=== PATIENT | male | born 1980 | race Caucasian/White ===

== ENCOUNTER 2017-02-05 09:09 | Emergency (ER) | payer BC ==
[2017-02-05] MEDS ORDERED: MORPHINE SULFATE 10 MG/ML INJ IV ONE ×4 (09:20→13:07)
--- NOTE | 2017-02-05 09:22 | ER Document Report ---
ED Medical Screen (RME) - General Chief Complaint: Flank Pain Stated Complaint: FEVER/FLANK PAIN Time Seen by Provider: 02/05/17 09:19 Mode of Arrival: Ambulatory Information source: Patient Notes: This is a 36-year-old man presenting to the emergency room with 3 days of fever , chills and right flank pain. Patient has noted dark urine. Patient states his temperatures been between 102 and 103. He has been taking Tylenol and Motrin [id number]. Denies any history of kidney stones. Allergies: Tramadol (palpitations) Past medical history: Hypertension, asthma chronic knee pain Dictation on this chart was performed using voice recognition software and may result in unintended grammatical errors. TRAVEL OUTSIDE OF THE [place] IN LAST 30 DAYS: No - Related Data Allergies/Adverse Reactions: egg Allergy (Verified 02/05/17 09:11) tramadol Allergy (Verified 02/05/17 09:11) Past Medical History Pulmonary Medical History: Reports: Hx Asthma, Hx COPD Renal/ Medical History: Denies: Hx Peritoneal Dialysis Skin Medical History: Denies Hx MRSA Psychiatric Medical History: Reports: Hx Attention Deficit Hyperactivity Disorder, Hx Depression, Hx Schizophrenia Past Surgical History: Reports: Hx Genitourinary Surgery - circumscised - Immunizations Immunizations up to date: Yes Hx Diphtheria, Pertussis, Tetanus Vaccination: Yes Physical Exam - Vital signs Vitals: Temp Pulse Resp BP Pulse Ox 98.6 F 117 H 20 149/88 H 100 02/05/17 09:11 02/05/17 09:11 02/05/17 09:11 02/05/17 09:11 02/05/17 09:11 Course - Vital Signs Vital signs: Temp Pulse Resp BP Pulse Ox 98.6 F 117 H 20 149/88 H 100 02/05/17 09:11 02/05/17 09:11 02/05/17 09:11 02/05/17 09:11 02/05/17 09:11
--- NOTE | 2017-02-05 09:44 | ER Document Report ---
ED GI/ - General Chief Complaint: Flank Pain Stated Complaint: FEVER/FLANK PAIN Time Seen by Provider: 02/05/17 09:19 Mode of Arrival: Ambulatory Information source: Patient Notes: Is a 36-year-old male who presents to the ER today for 3 days of right flank pain with fevers chills, some mild dysuria. He denies any hematuria. His fever has gotten as high as 103F at home. He has been taking Tylenol and Motrin [id number] as well as Percocet that he takes with pain management. He states that the pain is not controlled well with these medications. He denies any nausea or vomiting, history of kidney stones. TRAVEL OUTSIDE OF THE [place] IN LAST 30 DAYS: No - Related Data Allergies/Adverse Reactions: egg Allergy (Verified 02/05/17 09:11) tramadol Allergy (Verified 02/05/17 09:11) Past Medical History - General Information source: Patient - Social History Smoking Status: Unknown if Ever Smoked Family History: None, DM, Other - MS Patient has suicidal ideation: No Patient has homicidal ideation: No Pulmonary Medical History: Reports: Hx Asthma, Hx COPD Renal/ Medical History: Denies: Hx Peritoneal Dialysis Skin Medical History: Denies Hx MRSA Psychiatric Medical History: Reports: Hx Attention Deficit Hyperactivity Disorder, Hx Depression, Hx Schizophrenia Past Surgical History: Reports: Hx Genitourinary Surgery - circumscised - Immunizations Immunizations up to date: Yes Hx Diphtheria, Pertussis, Tetanus Vaccination: Yes Review of Systems - Review of Systems Constitutional: See HPI EENT: No symptoms reported Cardiovascular: No symptoms reported Respiratory: No symptoms reported Gastrointestinal: No symptoms reported Genitourinary: See HPI Male Genitourinary: No symptoms reported Musculoskeletal: No symptoms reported Skin: No symptoms reported Hematologic/Lymphatic: No symptoms reported Neurological/Psychological: No symptoms reported Physical Exam - Vital signs Vitals: Temp Pulse Resp BP Pulse Ox 98.6 F 117 H 20 149/88 H 100 02/05/17 09:11 02/05/17 09:11 02/05/17 09:11 02/05/17 09:11 02/05/17 09:11 - Notes Notes: PHYSICAL EXAMINATION: GENERAL: Ill-appearing, shaking, diaphoretic, in mild acute distress. HEAD: Atraumatic, normocephalic. EYES: Pupils equal round and reactive to light, extraocular movements intact, sclera anicteric, conjunctiva are normal. NECK: Normal range of motion, supple without lymphadenopathy LUNGS: CTAB and equal. No wheezes rales or rhonchi. HEART: Regular rate and rhythm without murmurs ABDOMEN: Soft, no tenderness. No guarding, no rebound BACK: no vertebral tenderness, normal ROM GI/: Right CVA tenderness EXTREMITIES: Normal range of motion, no pitting edema. No cyanosis. NEUROLOGICAL: Cranial nerves grossly intact. Normal sensory/motor exams. PSYCH: Normal mood, normal affect. SKIN: Warm, Dry, normal turgor, no rashes or lesions noted Course - Re-evaluation Re-evalutation: 02/05/17 13:09 Patient has a white blood cell count of 14.5, came in tachycardic at 117 bpm, urinalysis revealed moderate leukocytes, blood, 96 white blood cells, and CAT scan ordered in triage report perinephric stranding around the right kidney but no evidence of stone. Patient pain has been well controlled here with doses of pain medication, he has gotten IV Rocephin and IV fluids. At this time patient is on a pain management contract and does not want to go home with pain medication. I did advise that I could try to admit him to the hospitalist here for pyelonephritis with his labs and workup today, however patient refuses, stating that he wants to go home and will try outpatient medication first. He promises to come back if anything worsens. He requests non-narcotic pain medication as he does not want to ruin his pain management contract. - Vital Signs Vital signs: Temp Pulse Resp BP Pulse Ox 98.4 F 100 16 168/93 H 97 02/05/17 12:11 02/05/17 12:11 02/05/17 12:11 02/05/17 12:11 02/05/17 12:11 - Laboratory Result Diagrams: 02/05/17 09:31 02/05/17 09:31 Laboratory results interpreted by me: 02/05/17 02/05/17 02/05/17 09:31 09:31 11:08 WBC 14.5 H Seg Neuts % (Manual) 83 H Lymphocytes % (Manual) 8 L Abs Neuts (Manual) 12.5 H Glucose 208 H Total Protein 8.6 H Urine Protein 100 H Urine Glucose (UA) 50 H Urine Blood SMALL H Ur Leukocyte Esterase MODERATE H Discharge - Discharge Clinical Impression: Pyelonephritis Condition: Stable Disposition: HOME, SELF-CARE Instructions: Ciprofloxacin ([facility]), Pyelonephritis ([facility]) Additional Instructions: Return immediately for any new or worsening symptoms. Follow up with primary care provider, call tomorrow to make followup appointment. Prescriptions: Ketorolac Tromethamine [Toradol 10 mg Tablet] 10 mg PO Q6HP PRN #30 tablet PRN Reason: Ciprofloxacin HCl [Cipro 500 mg Tablet] 500 mg PO BID #20 tablet
[2017-02-05] MEDS: NORMAL SALINE 1000 ML 1,000 ML IV PRN ×2 (09:49→09:51)
[2017-02-05] MEDS ORDERED: ONDANSETRON HCL INJ/PF 4 MG/2 ML SDV IV ONE (09:53)
[2017-02-05] MEDS ORDERED: ALBUTEROL SULFATE 0.083% NEB 2.5 MG/3 ML AMPUL NEB ONE (09:53)
--- NOTE | 2017-02-05 10:08 | RADIOLOGY REPORT (SQ) ---
EXAM DESCRIPTION: CT LTD RENAL STONE PROTOCOL ON COMPLETED DATE/TIME: 02/05/2017 9:41 am REASON FOR STUDY: right flank pain COMPARISON: None. TECHNIQUE: CT scan of the abdomen and pelvis performed without intravenous or oral contrast. Images reviewed with lung, soft tissue, and bone windows. Reconstructed coronal and sagittal MPR images revi ewed. All images stored on PACS. All CT scanners at this facility use dose modulation, iterative reconstruction, and/or weight based d osing when appropriate to reduce radiation dose to as low as reasonably achievable (ALARA). [facility]: Dose Right [facility]: CareDose [facility]: Dose Right [facility]: Teradose 4D [facility]: Decision Rocket RADIATION DOSE: 12.45mGy. LIMITATIONS: None. FINDINGS: LOWER CHEST: No significant findings. No nodules or infiltrates. NON-CONTRASTED LIVER, SPLEEN, ADRENALS: Evaluation limited by lack of IV contrast. No identified sign ificant masses. PANCREAS: No masses. No peripancreatic inflammatory changes. GALLBLADDER: No identified stones by CT criteria. No inflammatory changes to suggest cholecystitis. RIGHT KIDNEY AND URETER: No suspicious masses. Assessment limited by lack of IV contrast. No defini te renal ureteric calculi are identified. There is perinephric soft tissue stranding which is more p ronounced than on the left. The appearance would suggest edematous changes which could be related to an infectious process or residual edema status post passage of a calculus. Clinical correlation is recommended. No hydronephrosis or hydroureter. LEFT KIDNEY AND URETER: No suspicious masses. Assessment limited by lack of IV contrast. No signifi cant calcifications. No hydronephrosis or hydroureter. AORTA AND RETROPERITONEUM: No aneurysm. No retroperitoneal masses or adenopathy. BOWEL AND PERITONEAL CAVITY: No obvious masses or inflammatory changes. No free fluid. APPENDIX: The appendix is not well visualized. There is no CT evidence for appendicitis. PELVIS, BLADDER, AND ABDOMINAL WALL:No abnormal masses. No free fluid. Bladder normal. BONES: No significant findings. OTHER: No other significant finding. IMPRESSION: No renal ureteric calculi are identified. There is perinephric soft tissue stranding in volving the right kidney which is more pronounced than on the left. The appearance would suggest loree matous changes which could be related to an infectious process or residual edema status post passage of a calculus. Clinical correlation is recommended. Other findings as noted above TECHNICAL DOCUMENTATION: JOB ID: [id number] Quality ID # [id number]: Final reports with documentation of one or more dose reduction techniques (e.g., Au tomated exposure control, adjustment of the mA and/or kV according to patient size, use of iterative reconstruction technique) 2010 [employer]- All Rights Reserved
[2017-02-05 10:14] LABS: PROTHROMBIN TIME 13.7 SEC (11.4-15.4)
[2017-02-05 10:15] LABS: HEMATOCRIT 48.9 % (37.9-51.0); HEMOGLOBIN 15.9 g/dL (13.5-17.0); HGB HCT DIFFERENCE -1.2; MEAN CORPUSCULAR HEMOGLOBIN 30.2 pg (27.0-33.4); MEAN CORPUSCULAR HGB CONC 32.6 g/dL (32.0-36.0); MEAN CORPUSCULAR VOLUME 93 fl (80-97); RED BLOOD COUNT 5.28 10^6/uL (4.35-5.55); RED CELL DISTRIBUTION WIDTH 12.7 % (11.5-14.0); WHITE BLOOD COUNT 14.5 10^3/uL (4.0-10.5)
[2017-02-05 10:18] LABS: BAND NEUTROPHILS % (MANUAL) 3 % (3-5); BASOPHILS % (MANUAL) 1 % (0-2); EOSINOPHILS % (MANUAL) 0 % (0-6); LYMPHOCYTES % (MANUAL) 8 % (13-45); TOTAL CELLS COUNTED 100
[2017-02-05 10:19] LABS: ALANINE AMINOTRANSFERASE 49 U/L (21-72); ALBUMIN 4.5 g/dL (3.5-5.0); ALKALINE PHOSPHATASE 104 U/L (38-126); ANION GAP 14 (5-19); ASPARTATE AMINO TRANSFERASE 38 U/L (17-59); BILIRUBIN,DIRECT 0.4 mg/dL (0.0-0.4); BILIRUBIN,TOTAL 0.6 mg/dL (0.2-1.3); BLOOD UREA NITROGEN 8 mg/dL (7-20); CALCIUM 9.9 mg/dL (8.4-10.2); CARBON DIOXIDE 24 mmol/L (22-30); CHLORIDE 102 mmol/L (98-107); CREATININE RESULT 0.81 mg/dL (0.52-1.25); GLUCOSE 208 mg/dL (75-110); POTASSIUM 4.2 mmol/L (3.6-5.0); RBC MORPHOLOGY COMMENT NORMO-CYTIC/CHROMIC; SODIUM 139.7 mmol/L (137-145); TOTAL PROTEIN 8.6 g/dL (6.3-8.2)
[2017-02-05 11:27] LABS: APPEARANCE,URINE SLIGHTLY-CLOUDY; BILIRUBIN,URINE NEGATIVE (NEGATIVE); GLUCOSE, URINE 50 mg/dL (NEGATIVE); KETONES,URINE NEGATIVE (NEGATIVE); LEUKOCYTE ESTERASE,URINE MODERATE (NEGATIVE); NITRITE,URINE NEGATIVE (NEGATIVE); PROTEIN,URINE 100 mg/dL (NEGATIVE); URINE SPECIFIC GRAVITY 1.005; UROBILINOGEN,URINE NEGATIVE mg/dL (<2.0)
[2017-02-05] MEDS ORDERED: NORMAL SALINE 1000 ML 1,000 ML IV ONE (11:48)
[2017-02-05] MEDS ORDERED: CEFTRIAXONE 1 GM/D5W RTU 50 ML IV ONE (11:48)
[2017-02-05] MEDS ORDERED: KETOROLAC TROMETHAMINE INJ/PF 30 MG/1 ML SDV IV ONE (13:06)
[2017-02-05] MEDS ORDERED: ACETAMINOPHEN 325 MG TABLET PO ONE (13:42)
[2017-02-05] MEDS ORDERED: HYDROCODONE/ACETAMINOPHEN 5-325 MG 6 TAB/DSPK PO PRN (13:58)
[2017-02-05 14:39] VITALS: BP 140/89
== END 2017-02-05 14:52 | disposition left against medical advice (07) ==
LOC: ER 09:09
DX: N12 Tubulo-interstitial nephritis, not specified as acute or chronic (principal); R10.9 Unspecified abdominal pain; R50.9 Fever, unspecified; R30.0 Dysuria; J44.9 Chronic obstructive pulmonary disease, unspecified; Z79.891 Long term (current) use of opiate analgesic; Z91.012 Allergy to eggs; Z88.5 Allergy status to narcotic agent; R00.0 Tachycardia, unspecified
CPT/HCPCS: 96376; 94640; 99284; 96361; 96375; 96365; 36415; 87040; 87086; 85025; 85610; 87077; 87088; 80053; 81001; 87186; 83605; 76380; J1885; J2270; J2405; J7030; J0696

== ENCOUNTER 2017-02-06 09:11 | Emergency (ER) | payer BC ==
[2017-02-06] MEDS ORDERED: NORMAL SALINE 1000 ML 1,000 ML IV ONE (09:19)
[2017-02-06] MEDS ORDERED: CEFTRIAXONE 1 GM/D5W RTU 50 ML IV ONE (09:19)
--- NOTE | 2017-02-06 09:21 | ER Document Report ---
ED General - General Stated Complaint: ABNORMAL LABS Time Seen by Provider: 02/06/17 09:21 Mode of Arrival: Ambulatory Information source: Patient, [facility] Records Notes: 36-year-old male who was diagnosed with pyelonephritis yesterday who at that time was septic and offered admission presents with callback for gram-negative kim in both urine and blood. This is a preliminary report. Patient notes she feels much better than yesterday denies any fevers states symptoms have improved significantly TRAVEL OUTSIDE OF THE [place] IN LAST 30 DAYS: No - HPI Onset: Yesterday Onset/Duration: Persistent, Better Quality of pain: No pain Severity: None Pain Level: Denies Associated symptoms: Fever, Other Exacerbated by: Denies Relieved by: Other - antibiotics Similar symptoms previously: Yes Recently seen / treated by doctor: Yes - Related Data Allergies/Adverse Reactions: egg Allergy (Verified 02/05/17 09:11) tramadol Allergy (Verified 02/05/17 09:11) Past Medical History - Social History Smoking Status: Never Smoker Cigarette use (# per day): No Chew tobacco use (# tins/day): No Smoking Education Provided: No Family History: None, DM, Other - MS Pulmonary Medical History: Reports: Hx Asthma, Hx COPD Renal/ Medical History: Denies: Hx Peritoneal Dialysis Skin Medical History: Denies Hx MRSA Psychiatric Medical History: Reports: Hx Attention Deficit Hyperactivity Disorder, Hx Depression, Hx Schizophrenia Past Surgical History: Reports: Hx Genitourinary Surgery - circumscised, Hx Orthopedic Surgery - Scope to bilateral knees October 2016 - Immunizations Immunizations up to date: Yes Hx Diphtheria, Pertussis, Tetanus Vaccination: Yes Review of Systems - Review of Systems Notes: REVIEW OF SYSTEMS: CONSTITUTIONAL : admits to fever resolved EENT: Denies eye, ear, throat, or mouth pain or symptoms. Denies nasal or sinus congestion or discharge. Denies throat, tongue, or mouth swelling or difficulty swallowing. CARDIOVASCULAR: Denies chest pain. Denies palpitations or racing or irregular heart beat. Denies ankle edema. RESPIRATORY: Denies cough, cold, or chest congestion. Denies shortness of breath, difficulty breathing, or wheezing. GASTROINTESTINAL: admits t oflank pain which resolved GENITOURINARY: Denies difficulty urinating, painful urination, burning, frequency, blood in urine, or discharge. MUSCULOSKELETAL: Denies back or neck pain or stiffness. Denies joint pain or swelling. SKIN: Denies rash, lesions or sores. HEMATOLOGIC : Denies easy bruising or bleeding. LYMPHATIC: Denies swollen, enlarged glands. NEUROLOGICAL: Denies confusion or altered mental status. Denies passing out or loss of consciousness. Denies dizziness or lightheadedness. Denies headache. Denies weakness or paralysis or loss of use of either side. Denies problems with gait or speech. Denies sensory loss, numbness, or tingling. Denies seizures. PSYCHIATRIC: Denies anxiety or stress. Denies depression, suicidal ideation, or homicidal ideation. ALL OTHER SYSTEMS REVIEWED AND NEGATIVE. Dictation was performed using [employer] voice recognition software PHYSICAL EXAMINATION: GENERAL: Well-appearing, well-nourished and in no acute distress. HEAD: Atraumatic, normocephalic. EYES: Pupils equal round and reactive to light, extraocular movements intact, sclera anicteric, conjunctiva are normal. ENT: Nares patent, oropharynx clear without exudates. Moist mucous membranes. NECK: Normal range of motion, supple without lymphadenopathy LUNGS: Breath sounds clear to auscultation bilaterally and equal. No wheezes rales or rhonchi. HEART: Regular rate and rhythm without murmurs ABDOMEN: Soft, nontender, nondistended abdomen. No guarding, no rebound. No masses appreciated. Musculoskeletal: Normal range of motion, no pitting or edema. No cyanosis. NEUROLOGICAL: Cranial nerves grossly intact. Normal speech, normal gait. Normal sensory, motor exams PSYCH: Normal mood, normal affect. SKIN: Warm, Dry, normal turgor, no rashes or lesions noted. Physical Exam - Vital signs Vitals: Temp Pulse Resp BP Pulse Ox 98.1 F 92 20 148/98 H 97 02/06/17 09:22 02/06/17 09:22 02/06/17 09:22 02/06/17 09:22 02/06/17 09:22 Course - Re-evaluation Re-evalutation: 02/06/17 09:42 pt overall looks much better, , he does not wish to be admitted but i did explain my concerns of septicemia, Pt is on approrpiate antibiotics , cultures are still pending finalization. I spoke with Dr Dhillon who states patient can be discharged and does not need admission. I will repeat lab work, give another dose of antibitiocs iv 02/06/17 10:40 Pts lab work noted significant improvement, hcest xray is normal. Pt otherwise feels very well, will dc home cautiously with very close return precautions. After performing a Medical Screening Examination, I estimate there is LOW risk for ACUTE APPENDICITIS, BOWEL OBSTRUCTION, ACUTE CHOLECYSTITIS, PERFORATED DIVERTICULITIS, INCARCERATED HERNIA, PANCREATITIS, or PERFORATED ULCER, thus I consider the discharge disposition reasonable. Also, there is no evidence or peritonitis, sepsis, or toxicity. I have reevaluated this patient multiple times and no significant life threatening changes are noted. The patient and I have discussed the diagnosis and risks, and we agree with discharging home with close follow-up with the understanding that symptoms and presentations can change. We also discussed returning to the Emergency Department immediately if new or worsening symptoms occur. We have discussed the symptoms which are most concerning (e.g., bloody stool, fever, changing or worsening pain, intractable vomiting - standard verbal up date) that necessitate immediate return. - Vital Signs Vital signs: Temp Pulse Resp BP Pulse Ox 98.1 F 92 20 148/98 H 97 02/06/17 09:22 02/06/17 09:22 02/06/17 09:22 02/06/17 09:22 02/06/17 09:22 - Laboratory Result Diagrams: 02/06/17 09:40 02/06/17 09:40 Laboratory results interpreted by me: 02/06/17 02/06/17 02/06/17 09:40 09:40 09:40 WBC 11.9 H Seg Neutrophils % 80.5 H Lymphocytes % 8.5 L Absolute Neutrophils 9.5 H Total Protein 6.1 L Urine Protein 30 H Urine Blood MODERATE H Ur Leukocyte Esterase SMALL H Urine Ascorbic Acid 20 H - Diagnostic Test Radiology reviewed: Image reviewed, Reports reviewed - no acute abnormality Discharge - Discharge Clinical Impression: Pyelonephritis, Septicemia Condition: Stable Disposition: HOME, SELF-CARE Instructions: Pyelonephritis ([facility]) Additional Instructions: You must continue your antibiotics If you begin feeling ill, you must return immediately for recheck and admission Please follow up with your pcp in 1 week for reevaluation
[2017-02-06 10:05] LABS: VENOUS BLOOD BASE EXCESS 0.3 mmol/L; VENOUS BLOOD HCO3 26.7 mmol/L (20-32); VENOUS BLOOD PCO2 49.6 mmHg (35-63); VENOUS BLOOD PH 7.35 (7.30-7.42)
[2017-02-06 10:07] LABS: ABSOLUTE EOSINOPHILS # (AUTO) 0.1 10^3/uL (0.0-0.6); ABSOLUTE MONOCYTES (AUTO) 1.1 10^3/uL (0.1-1.4); ABSOLUTE NEUT (AUTO) 9.5 10^3/uL (1.7-8.2); BASOPHILS % (AUTO) 0.3 % (0-2); EOSINOPHILS % (AUTO) 1.1 % (0-6); HEMATOCRIT 43.5 % (37.9-51.0); HEMOGLOBIN 14.4 g/dL (13.5-17.0); HGB HCT DIFFERENCE -0.3; LYMPHOCYTES % (AUTO) 8.5 % (13-45); MEAN CORPUSCULAR HEMOGLOBIN 30.3 pg (27.0-33.4); MEAN CORPUSCULAR HGB CONC 33.1 g/dL (32.0-36.0); MEAN CORPUSCULAR VOLUME 92 fl (80-97); MONOCYTES % (AUTO) 9.6 % (3-13); RED BLOOD COUNT 4.75 10^6/uL (4.35-5.55); RED CELL DISTRIBUTION WIDTH 12.7 % (11.5-14.0); SEGMENTED NEUTROPHILS % (AUTO) 80.5 % (42-78); WHITE BLOOD COUNT 11.9 10^3/uL (4.0-10.5)
[2017-02-06 10:12] LABS: PROTHROMBIN TIME 13.4 SEC (11.4-15.4)
[2017-02-06 10:20] LABS: ALANINE AMINOTRANSFERASE 44 U/L (21-72); ALBUMIN 3.5 g/dL (3.5-5.0); ALKALINE PHOSPHATASE 83 U/L (38-126); ANION GAP 12 (5-19); ASPARTATE AMINO TRANSFERASE 25 U/L (17-59); BILIRUBIN,DIRECT 0.4 mg/dL (0.0-0.4); BILIRUBIN,TOTAL 0.6 mg/dL (0.2-1.3); BLOOD UREA NITROGEN 11 mg/dL (7-20); CALCIUM 8.9 mg/dL (8.4-10.2); CARBON DIOXIDE 23 mmol/L (22-30); CHLORIDE 103 mmol/L (98-107); CREATININE RESULT 0.83 mg/dL (0.52-1.25); GLUCOSE 103 mg/dL (75-110); POTASSIUM 4.2 mmol/L (3.6-5.0); SODIUM 138.4 mmol/L (137-145); TOTAL PROTEIN 6.1 g/dL (6.3-8.2)
--- NOTE | 2017-02-06 10:34 | RADIOLOGY REPORT (SQ) ---
EXAM DESCRIPTION: CHEST PA/LAT COMPLETED DATE/TIME: 02/06/2017 10:21 am REASON FOR STUDY: cough fever COMPARISON: September 2015 EXAM PARAMETERS: NUMBER OF VIEWS: two views TECHNIQUE: Digital Frontal and Lateral radiographic views of the chest acquired. RADIATION DOSE: NA LIMITATIONS: none FINDINGS: LUNGS AND PLEURA: No opacities, masses or pneumothorax. No pleural effusion. MEDIASTINUM AND HILAR STRUCTURES: No masses or contour abnormalities. HEART AND VASCULAR STRUCTURES: Heart normal size. No evidence for failure. BONES: No acute findings. HARDWARE: None in the chest. OTHER: No other significant finding. IMPRESSION: NO SIGNIFICANT RADIOGRAPHIC FINDING IN THE CHEST. TECHNICAL DOCUMENTATION: JOB ID: [id number] [employer]- All Rights Reserved
[2017-02-06 10:37] LABS: APPEARANCE,URINE CLEAR; BILIRUBIN,URINE NEGATIVE (NEGATIVE); GLUCOSE, URINE NEGATIVE (NEGATIVE); KETONES,URINE NEGATIVE (NEGATIVE); LEUKOCYTE ESTERASE,URINE SMALL (NEGATIVE); NITRITE,URINE NEGATIVE (NEGATIVE); PROTEIN,URINE 30 mg/dL (NEGATIVE); URINE SPECIFIC GRAVITY 1.014; UROBILINOGEN,URINE NEGATIVE mg/dL (<2.0)
[2017-02-06 10:44] VITALS: BP 145/93
--- NOTE | 2017-02-06 17:58 | EKG REPORT ---
SEVERITY:- NORMAL ECG - SINUS RHYTHM : Confirmed by: Ant Romo MD 06-Feb-2017 17:57:15
== END 2017-02-06 10:45 | disposition home or self-care (01) ==
LOC: ER 09:11
DX: A41.9 Sepsis, unspecified organism (principal); N12 Tubulo-interstitial nephritis, not specified as acute or chronic; J44.9 Chronic obstructive pulmonary disease, unspecified; Z91.012 Allergy to eggs; Z88.5 Allergy status to narcotic agent
CPT/HCPCS: 93005; 99284; 96365; 36415; 87040; 87086; 85025; 85610; 80053; 81001; 82803; 83605; 71020; 93010; J7030; J0696

== ENCOUNTER 2017-07-14 08:40 | Emergency (ER) | payer SELFPAY ==
--- NOTE | 2017-07-14 09:19 | ER Document Report ---
ED General - General Chief Complaint: Toothache Stated Complaint: MOUTH PAIN Time Seen by Provider: 07/14/17 09:18 Mode of Arrival: Ambulatory Information source: Patient Notes: Patient is a 37-year-old male who presents with dental pain and swelling to the left jaw that has been present for the past 2-3 days. He states he has a history of infection to the same area 6 months ago but due to insurance issues but was unable to get the tooth extracted. He states he feels that what brought this one on was he was cleaning his tooth with floss and a dental pick and he thinks he irritated the gum area. He denies any fever, chills, difficulty swallowing, sore throat, coughing or vomiting. He has been taking Tylenol and ibuprofen without any pain relief and he states he also has taken some old amoxicillin and clindamycin that he had from previous infections without any improvement. He does not have a dentist appointment at this time. TRAVEL OUTSIDE OF THE [place] IN LAST 30 DAYS: No - Related Data Allergies/Adverse Reactions: egg Allergy (Verified 07/14/17 08:40) tramadol Allergy (Verified 07/14/17 08:40) Past Medical History - Social History Smoking Status: Current Every Day Smoker Family History: None, DM, Other - MS Pulmonary Medical History: Reports: Hx Asthma, Hx COPD Renal/ Medical History: Denies: Hx Peritoneal Dialysis Skin Medical History: Denies Hx MRSA Psychiatric Medical History: Reports: Hx Attention Deficit Hyperactivity Disorder, Hx Depression, Hx Schizophrenia Past Surgical History: Reports: Hx Genitourinary Surgery - circumscised, Hx Orthopedic Surgery - Scope to bilateral knees October 2016 - Immunizations Immunizations up to date: Yes Hx Diphtheria, Pertussis, Tetanus Vaccination: Yes Review of Systems - Review of Systems Constitutional: See HPI EENT: See HPI Cardiovascular: No symptoms reported Respiratory: No symptoms reported Gastrointestinal: No symptoms reported Genitourinary: No symptoms reported Male Genitourinary: No symptoms reported Musculoskeletal: No symptoms reported Skin: No symptoms reported Hematologic/Lymphatic: No symptoms reported Neurological/Psychological: No symptoms reported Physical Exam - Vital signs Vitals: Temp Pulse Resp BP Pulse Ox 98.1 F 90 16 153/93 H 95 07/14/17 08:48 07/14/17 08:48 07/14/17 08:48 07/14/17 08:48 07/14/17 08:48 - Notes Notes: PHYSICAL EXAM: CONSTITUTIONAL: Alert and oriented, well-appearing and in no acute distress. Speaking in full sentences without difficulty. HENT: Normocephalic, atraumatic. Oropharynx clear without erythema, tonsilar exudate or malocclusion. Trachea midline. Uvula midline. Moist mucous membranes. Edentulous tooth 17, tooth #18 with significant caries and mild gingival swelling, no area of induration or fluctuance with point of access for drainable abscess. Minimal facial swelling without erythema. No submandibular space tenderness or swelling. EYES: Pupils equal round and reactive to light, EOM intact. Sclera anicteric, conjunctiva are normal. No entrapment. NECK: supple without lymphadenopathy. ROM intact. HEART: Regular rate and rhythm without murmurs. LUNGS: CTAB and equal. No wheezes, rales or rhonchi. EXTREMITIES: Normal range of motion, no pitting edema. No cyanosis. Cap Refill < 3 seconds. NEURO: Cranial nerves grossly intact. Normal sensory/motor exams. PSYCH: Normal mood, normal affect. SKIN: Warm and dry. Normal turgor. No rashes or lesions noted. Course - Re-evaluation Re-evalutation: 07/14/17 09:36 Patient seen and examined. Patient is alert and oriented, speaking in full sentences without difficulty and no acute distress and nontoxic in appearance. Vital signs are stable patient is afebrile and well-hydrated. He is requesting a shot of antibiotics which was given to him. He was also counseled on taking all antibiotics as prescribed until completely finished without leaving any leftover. Advised that he would need to follow-up with a dentist. Low suspicion for peritonsillar/pharyngeal abscess, Kalyan's, other emergent systemic condition at this time. Prescribed antibiotics and pain medication. Given work note. At this time, will discharge with return precautions and follow-up recommendations. Verbal discharge instructions given at the bedside and opportunity for questions given. Medication warnings reviewed. Patient is in agreement with this plan and has verbalized understanding of return precautions and the need for primary care follow-up in the next 24-72 hours. - Vital Signs Vital signs: Temp Pulse Resp BP Pulse Ox 98.1 F 90 16 153/93 H 95 07/14/17 08:48 07/14/17 08:48 07/14/17 08:48 07/14/17 08:48 07/14/17 08:48 Discharge - Discharge Clinical Impression: Infected dental caries, Dental caries Condition: Stable Disposition: HOME, SELF-CARE Additional Instructions: TOOTHACHE: Your pain is due to dental decay. The tooth must be repaired in order for you to feel better. You will, therefore, be referred to a dentist. We do not have dentists on the staff at [facility]. Severe swelling or drainage around a tooth usually means a dental abscess. This also requires evaluation and treatment by the dentist, but antibiotics may be prescribed while awaiting dental treatment. You should be rechecked immediately if you develop major swelling of the face, increasing pain, a lump in the jaw or gums, headache, difficulty swallowing, or fever. ORAL NARCOTIC MEDICATION: You have been given a prescription for pain control. This medication is a narcotic. It's best taken with food, as nausea can result if taken on an empty stomach. Don't operate machinery or drive within six hours of taking this medication. Do not combine this medicine with alcohol, or with any medication which can cause sedation (such as cold tablets or sleeping pills) unless you get permission from the physician. Narcotics tend to cause constipation. If possible, drink plenty of fluids and eat a diet high in fiber and fruits. Please be aware that prescription narcotics also have the potential for abuse. People become addicted to these medications because of the general sense of wellbeing that they induce. This feeling along with a significant reduction in tension, anxiety, and aggression provides a stimulating seductive quality to these drugs. Once your pain is under control, we encourage you to discard your unused narcotics. CLINDAMYCIN: You have been given a prescription for the antibiotic clindamycin. It is often prescribed for infections in the mouth, such as dental infections or abscesses, and for skin infections due to MRSA. It's important that you take all the medication, unless instructed otherwise by your physician. Failure to complete the entire course can result in relapse of your condition. Common side effects of antibiotics include nausea, intestinal cramping, or diarrhea. Women may develop vaginal yeast infections, and babies can get yeast (thrush) in the mouth following the use of antibiotics. Contact your physician if you develop significant side effects from this medication. Allergy to this antibiotic can result in hives, wheezing, faintness, or itching. If symptoms of allergy occur, stop the medication and call the doctor. FOLLOW-UP CARE: You have been referred for follow-up care to the dentists listed below. Call the dentists office for an appointment as you were instructed or within the next two days. If you experience worsening or a significant change in your symptoms, notify the physician immediately or return to the Emergency Department at any time for re-evaluation. [facility] [address], [place] Tuesday mornings, by appointment [facility] [address] [place] [address] [facility] [address] [facility] [address] [facility] [address] [email or web address] [address] [place] [address] Tuesday- 8:00am to 5:00 pm Will see patients from other [facility]. Charges based on income and family size and accepts Medicare, Medicaid, and Insurances Will pull molars [facility] [id number] Hours of Operation 8:00 am - 4:30 pm weekdays The following dental offices accept Medicaid: [facility] Dr. Brian Dr. Curry Dr. Cormier Dr. Fernández Daniel Gaffney, Silvino, and Merle oral surgery Dr. Mcleod ([place]) Dr. Vanessa ([place]) [facility] Drs. Angel and Deven ([place]) Dr. Gilbert ([place]) [facility] Dr. Ruiz ([place]) Drs. Salas and ([place]) Medicaid Care Line Prescriptions: Clindamycin HCl 300 mg PO Q6H #28 capsule Hydrocodone/Acetaminophen [[place] 5-325 mg Tablet] 1 tab PO Q6H PRN #10 tablet PRN Reason: Ibuprofen [Motrin 600 Mg Tablet] 600 mg PO TID #15 tablet Forms: Elevated Blood Pressure, Return to Work
[2017-07-14] MEDS ORDERED: CEFTRIAXONE INJ 500 MG VIAL IM ONE (09:39)
[2017-07-14] MEDS ORDERED: LIDOCAINE 1% INJ-PF (10 MG/ML) 30 ML SDV INFIL ONE (09:39)
[2017-07-14 10:09] VITALS: BP 158/77
== END 2017-07-14 10:09 | disposition home or self-care (01) ==
LOC: ER 08:40
DX: K04.7 Periapical abscess without sinus (principal); K02.9 Dental caries, unspecified; F17.200 Nicotine dependence, unspecified, uncomplicated; J44.9 Chronic obstructive pulmonary disease, unspecified; Z91.012 Allergy to eggs; Z88.5 Allergy status to narcotic agent
CPT/HCPCS: 99282; 96372; J3490; J0696

== ENCOUNTER 2018-06-21 08:06 | Emergency (ER) | payer SELFPAY ==
[2018-06-21 08:10] VITALS: BP 153/97
--- NOTE | 2018-06-21 08:24 | ER Document Report ---
ED Oral Problem - General Mode of Arrival: Ambulatory Information source: Patient TRAVEL OUTSIDE OF THE [place] IN LAST 30 DAYS: No - General Chief Complaint: Mouth Problem Stated Complaint: MOUTH PAIN Time Seen by Provider: 06/21/18 08:15 Notes: 38-year-old male who presents to the emergency department today with complaints of dental pain. Patient has had multiple episodes of poor dentition in the past and was started on clindamycin on 05/10/2018 however he did not finish taking the prescription. Patient states he "needs something stronger" for the infection. Patient also requests a take home package of narcotics "for the severe pain". (MELINDA BAXTER) - Related Data Allergies/Adverse Reactions: egg Allergy (Verified 06/21/18 08:08) tramadol Allergy (Verified 06/21/18 08:08) Past Medical History - General Information source: Patient - Social History Smoking Status: Current Every Day Smoker Cigarette use (# per day): Yes Frequency of alcohol use: Social Lives with: Family Family History: None, DM, Other - MS Pulmonary Medical History: Reports: Hx Asthma, Hx COPD Psychiatric Medical History: Reports: Hx Attention Deficit Hyperactivity Disorder, Hx Depression, Hx Schizophrenia Past Surgical History: Reports: Hx Genitourinary Surgery - circumscised, Hx Orthopedic Surgery - Scope to bilateral knees October 2016 - Immunizations Immunizations up to date: Yes Hx Diphtheria, Pertussis, Tetanus Vaccination: Yes Review of Systems - Review of Systems Constitutional: No symptoms reported EENT: See HPI, Mouth swelling, Dental problem Cardiovascular: No symptoms reported Respiratory: No symptoms reported Gastrointestinal: No symptoms reported Genitourinary: No symptoms reported Male Genitourinary: No symptoms reported Musculoskeletal: No symptoms reported Skin: No symptoms reported Hematologic/Lymphatic: No symptoms reported Neurological/Psychological: No symptoms reported -: Yes All other systems reviewed and negative Physical Exam - Vital signs Vitals: Temp Pulse Resp BP Pulse Ox 98.6 F 103 H 14 153/97 H 98 06/21/18 08:09 06/21/18 08:09 06/21/18 08:09 06/21/18 08:09 06/21/18 08:09 - Notes Notes: Physical Exam: General: Alert, appears well. HEENT: Normocephalic. Atraumatic. PERRLA. Extraocular movements intact. Oropharynx clear. Right shoulder is swollen and tender with palpation. Tooth # 31, right lower second molar is decayed and tender with palpation. No identifiable abscess. Airway is patent. Neck: Supple. Respiratory: No respiratory distress. Abdominal: Normal Inspection. No distension. Extremities: Moves all four extremities. Neurological: Normal cognition. AAOx4. Normal speech. Psychological: Normal affect. Normal Mood. Skin: Warm. Dry. Normal color. (MELINDA BAXTER) Course - Re-evaluation Re-evalutation: 06/21/18 08:54 At discharge, the patient is requesting pain medication to be dispensed. A prescription for a small quantity of [place] was initially done, he told the nurse that he was not allowed to fill that but he could take a dispense pack of pain medication. I looked him up in the drug database and find that he is receiving oxycodone 10 mg 4 times daily on a chronic basis. He was counseled about the fact that he was essentially trying to fraudulently obtain narcotics. (BURT KAISER) - Vital Signs Vital signs: Temp Pulse Resp BP Pulse Ox 98.6 F 103 H 14 153/97 H 98 06/21/18 08:09 06/21/18 08:09 06/21/18 08:09 06/21/18 08:09 06/21/18 08:09 Discharge - Discharge Clinical Impression: Dental decay, Toothache Condition: Stable Disposition: HOME, SELF-CARE Instructions: Dentist Additional Instructions: Toothache Your pain is due to dental decay. The tooth must be repaired or removed in order for you to feel better. You will, therefore, be referred to a dentist. Severe swelling or drainage around a tooth usually means a deep dental abscess. This also requires evaluation and treatment by the dentist, but antibiotics may be prescribed while awaiting dental treatment. You should be rechecked immediately if you develop major swelling of the face, increasing pain, a lump in the jaw or gums, headache, or fever. Take the medication as prescribed. Continue your regularly scheduled oxycodone 10 mg tablets 4 times daily. Take ibuprofen 800 mg every 8 hours for inflammation and pain. Use warm soaks on the painful swollen jaw. Follow-up with a local dentist in the next week to create a plan to manage your severely decayed tooth. RETURN TO THE EMERGENCY ROOM IF ANY NEW OR WORSENING SYMPTOMS. Prescriptions: Penicillin V Potassium [Penicillin Vk 500 mg Tablet] 500 mg PO QID #28 tablet Referrals: KIRSTIE SIMPSON MD [Primary Care Provider] - Follow up as needed Scribe Attestation: 06/21/18 08:27 I personally performed the services described in the documentation, reviewed and edited the documentation which was dictated to the scribe in my presence, and it accurately records my words and actions. (BURT KAISER) Scribe Documentation - Scribe Written by Chrissie:: Chrissie Pike, 06/21/2018 0911 acting as scribe for :: Judith
== END 2018-06-21 09:01 | disposition home or self-care (01) ==
LOC: ER 08:06
DX: K02.9 Dental caries, unspecified (principal); K08.89 Other specified disorders of teeth and supporting structures; J44.9 Chronic obstructive pulmonary disease, unspecified; F17.210 Nicotine dependence, cigarettes, uncomplicated; Z79.891 Long term (current) use of opiate analgesic; Z91.012 Allergy to eggs; Z88.5 Allergy status to narcotic agent
CPT/HCPCS: 99282

== ENCOUNTER 2019-07-05 10:48 | Emergency (ER) | payer BC ==
[2019-07-05] MEDS ORDERED: KETOROLAC TROMETHAMINE INJ/PF 30 MG/1 ML SDV IV ONE (10:59)
[2019-07-05] MEDS ORDERED: NORMAL SALINE 1000 ML 1,000 ML IV ONE (11:01)
--- NOTE | 2019-07-05 11:06 | ER Document Report ---
ED Medical Screen (RME) - General Chief Complaint: Flank Pain Stated Complaint: BLOOD IN URINE,FLANK PAIN Time Seen by Provider: 07/05/19 10:53 Primary Care Provider: KIRSITE SIMPSON MD [ACTIVE STAFF] - Follow up as needed Notes: Patient is a 39-year-old male who presents to the emergency department with a chief complaint of dysuria and hematuria. He started to have it about 2 days ago and states that he feels it in his bilateral lower back. Patient states that he feels like he does not have a steady stream of urine. Reports chills, but no fever. Exam: Left CVA tenderness. No right CVA tenderness. I have greeted and performed a rapid initial assessment of this patient. A comprehensive ED assessment and evaluation of the patient, analysis of test results and completion of medical decision making process will be conducted by an additional ED providers. TRAVEL OUTSIDE OF THE [place] IN LAST 30 DAYS: No - Related Data Allergies/Adverse Reactions: egg Allergy (Verified 06/21/18 08:08) tramadol Allergy (Verified 06/21/18 08:08) Past Medical History Pulmonary Medical History: Reports: Hx Asthma, Hx COPD Renal/ Medical History: Denies: Hx Peritoneal Dialysis Skin Medical History: Denies Hx MRSA Psychiatric Medical History: Reports: Hx Attention Deficit Hyperactivity Disorder, Hx Depression, Hx Schizophrenia Past Surgical History: Reports: Hx Genitourinary Surgery - circumscised, Hx Or thopedic Surgery - Scope to bilateral knees October 2016 - Immunizations Immunizations up to date: Yes Hx Diphtheria, Pertussis, Tetanus Vaccination: Yes Physical Exam - Vital signs Vitals: Temp Pulse Resp BP Pulse Ox 97.4 F 77 18 147/94 H 96 07/05/19 11:02 07/05/19 11:02 07/05/19 11:02 07/05/19 11:02 07/05/19 11:02 Course - Vital Signs Vital signs: Temp Pulse Resp BP Pulse Ox 97.2 F 67 16 149/96 H 97 07/05/19 13:18 07/05/19 13:18 07/05/19 13:18 07/05/19 13:18 07/05/19 13:18 - Laboratory Result Diagrams: 07/05/19 11:05 07/05/19 11:05 Laboratory results interpreted by me: 1207/05/19 07/05/19 11:05 11:05 11:05 WBC 11.5 H Lymph % (Auto) 12.4 L Absolute Neuts (auto) 9.0 H Glucose 161 H Urine Protein 100 H Urine Blood MODERATE H Urine Nitrite POSITIVE H Ur Leukocyte Esterase MODERATE H Urine Ascorbic Acid 20 H Doctor's Discharge - Discharge Clinical Impression: Acute cystitis with hematuria Condition: Stable Disposition: HOME, SELF-CARE Additional Instructions: Urinary Tract Infection Your evaluation indicates that you have a urinary tract infection. This is due to germs growing in the bladder. This is a common problem. This infection usually responds quickly to antibiotics. Your antibiotic should be taken exactly as prescribed. Drink plenty of fluids -- three to four quarts a day. Occasionally, a bladder anesthetic will be prescribed to help stop the feeling of urgency until the antibiotic has a chance to clear the infection. This may cause your urine to be dark orange. Certain urine infections require a culture. If the doctor obtained a culture, the results will be back in two days. You should call to see if a change in treatment is needed. A repeat urinalysis after you finish treatment is often recommended. The p hysinalinian will let you know if further testing is required. Call the doctor if you develop fever, chills, flank pain, inability to urinate, or blood in the urine. Prescriptions: Cephalexin Monohydrate [Keflex 500 mg Capsule] 500 mg PO BID 7 Days capsule Referrals: KIRSTIE SIMPSON MD [ACTIVE STAFF] - Follow up as needed
[2019-07-05 11:28] LABS: ABSOLUTE BASOPHILS # (AUTO) 0.1 10^3/uL (0.0-0.2); ABSOLUTE EOSINOPHILS # (AUTO) 0.4 10^3/uL (0.0-0.6); ABSOLUTE LYMPHOCYTES (AUTO) 1.4 10^3/uL (0.5-4.7); ABSOLUTE MONOCYTES (AUTO) 0.7 10^3/uL (0.1-1.4); BASOPHILS % (AUTO) 0.6 % (0-2); EOSINOPHILS % (AUTO) 3.3 % (0-6); HEMATOCRIT 44.5 % (37.9-51.0); HEMOGLOBIN 15.2 g/dL (13.5-17.0); LYMPHOCYTES % (AUTO) 12.4 % (13-45); MEAN CORPUSCULAR HEMOGLOBIN 30.4 pg (27.0-33.4); MEAN CORPUSCULAR HGB CONC 34.2 g/dL (32.0-36.0); MEAN CORPUSCULAR VOLUME 89 fl (80-97); MONOCYTES % (AUTO) 5.7 % (3-13); PLATELET COUNT 237 10^3/uL (150-450); RED BLOOD COUNT 5.01 10^6/uL (4.35-5.55); RED CELL DISTRIBUTION WIDTH 12.1 % (11.5-14.0); TOTAL CELLS COUNTED % (AUTO) 100 %; WHITE BLOOD COUNT 11.5 10^3/uL (4.0-10.5)
[2019-07-05 11:35] LABS: APPEARANCE,URINE SLIGHTLY-CLOUDY; BILIRUBIN,URINE NEGATIVE (NEGATIVE); COLOR,URINE YELLOW; GLUCOSE, URINE NEGATIVE (NEGATIVE); KETONES,URINE NEGATIVE (NEGATIVE); LEUKOCYTE ESTERASE,URINE MODERATE (NEGATIVE); NITRITE,URINE POSITIVE (NEGATIVE); PROTEIN,URINE 100 mg/dL (NEGATIVE); URINE SPECIFIC GRAVITY 1.018; UROBILINOGEN,URINE NEGATIVE mg/dL (<2.0)
[2019-07-05 11:43] LABS: ALBUMIN 4.5 g/dL (3.5-5.0); ALKALINE PHOSPHATASE 71 U/L (38-126); ANION GAP 10 (5-19); ASPARTATE AMINO TRANSFERASE 23 U/L (17-59); BILIRUBIN,DIRECT 0.1 mg/dL (0.0-0.4); BILIRUBIN,TOTAL 0.4 mg/dL (0.2-1.3); BLOOD UREA NITROGEN 12 mg/dL (7-20); CALCIUM 9.6 mg/dL (8.4-10.2); CARBON DIOXIDE 27 mmol/L (22-30); CHLORIDE 101 mmol/L (98-107); GLUCOSE 161 mg/dL (75-110); POTASSIUM 4.4 mmol/L (3.6-5.0); TOTAL PROTEIN 7.5 g/dL (6.3-8.2)
--- NOTE | 2019-07-05 12:20 | RADIOLOGY REPORT (SQ) ---
EXAM DESCRIPTION: CT ABD/PELVIS NO ORAL OR IV COMPLETED DATE/TIME: 07/05/2019 11:55 am REASON FOR STUDY: flank pain; bladder pain COMPARISON: None. TECHNIQUE: CT scan of the abdomen and pelvis performed without intravenous or oral contrast. Images reviewed with lung, soft tissue, and bone windows. Reconstructed coronal and sagittal MPR images revi ewed. All images stored on PACS. All CT scanners at this facility use dose modulation, iterative reconstruction, and/or weight based d osing when appropriate to reduce radiation dose to as low as reasonably achievable (ALARA). [facility]: Dose Right [facility]: CareDose [facility]: Dose Right [facility]: Teradose 4D [facility]: Betterment RADIATION DOSE: CT Rad equipment meets quality standard of care and radiation dose reduction techniq ues were employed. CTDIvol: 8.5 mGy. DLP: 475 mGy-cm.mGy. LIMITATIONS: None. FINDINGS: LOWER CHEST: No significant findings. No nodules or infiltrates. NON-CONTRASTED LIVER, SPLEEN, ADRENALS: Evaluation limited by lack of IV contrast. No identified sign ificant masses. PANCREAS: No masses. No peripancreatic inflammatory changes. GALLBLADDER: No identified stones by CT criteria. No inflammatory changes to suggest cholecystitis. RIGHT KIDNEY AND URETER: No suspicious masses. Assessment limited by lack of IV contrast. No signif icant calcifications. No hydronephrosis or hydroureter. LEFT KIDNEY AND URETER: No suspicious masses. Assessment limited by lack of IV contrast. There is a 4 mm density within the region of the distal left ureter which is favored represent a vascular calci fication. No hydronephrosis or hydroureter. AORTA AND RETROPERITONEUM: No aneurysm. No retroperitoneal masses or adenopathy. BOWEL AND PERITONEAL CAVITY: No obvious masses or inflammatory changes. No free fluid. APPENDIX: Normal. PELVIS, BLADDER, AND ABDOMINAL WALL:Mild circumferential bladder wall thickening in the incompletely distended bladder. No focal thickening. No pelvic free fluid, adenopathy or mass. BONES: No acute bony abnormality. No suspicious lytic or blastic osseous lesions. OTHER: No other significant finding. IMPRESSION: 1. No definite nephrolithiasis. No hydronephrosis. 4 mm calcific density within the r egion of the distal left ureter which is favored to represent a vascular calcification although stone not entirely excluded. 2. Mild circumferential bladder wall thickening, likely secondary to decompressed state. Recommend correlation with urinalysis for evaluation of cystitis. 3. No other findings to explain patient's symptoms. COMMENT: Quality ID # [id number]: Final reports with documentation of one or more dose reduction techniques (e.g., Automated exposure control, adjustment of the mA and/or kV according to patient size, use of iterative reconstruction technique) TECHNICAL DOCUMENTATION: JOB ID: [id number] [employer]- All Rights Reserved Reading location - IP/workstation name: [email or web address]
[2019-07-05] MEDS ORDERED: CEPHALEXIN 500 MG CAPSULE PO ONE (12:30)
--- NOTE | 2019-07-05 12:30 | ER Document Report ---
ED General - General Chief Complaint: Back Pain Stated Complaint: BLOOD IN URINE,FLANK PAIN Time Seen by Provider: 07/05/19 10:53 Primary Care Provider: KIRSTIE SIMPSON MD [ACTIVE STAFF] - Follow up as needed Notes: 39-year-old male presents emergency department complaining of several days worth of dysuria, frequency and hematuria. States that the dysuria decreased slightly yesterday but returned today and today it is associated with flank pain and back pain. Also complains of 1 day of suprapubic abdominal pain. It feels similar to a prior UTI he had several years ago. Admits to night sweats but denies chills, fevers, nausea, vomiting, diarrhea. Denies any new sexual partners, denies any penile discharge. TRAVEL OUTSIDE OF THE [place] IN LAST 30 DAYS: No - Related Data Allergies/Adverse Reactions: egg Allergy (Verified 06/21/18 08:08) tramadol Allergy (Verified 06/21/18 08:08) Past Medical History - General Information source: Patient - Social History Smoking Status: Current Every Day Smoker Chew tobacco use (# tins/day): No Frequency of alcohol use: Occasional Drug Abuse: Marijuana Family History: DM, Other - MS Patient has suicidal ideation: No Patient has homicidal ideation: No Pulmonary Medical History: Reports: Hx Asthma, Hx COPD Renal/ Medical History: Denies: Hx Peritoneal Dialysis Skin Medical History: Denies Hx MRSA Psychiatric Medical History: Reports: Hx Attention Deficit Hyperactivity Disorder, Hx Depression, Hx Schizophrenia Past Surgical History: Reports: Hx Genitourinary Surgery - circumscised, Hx Orthopedic Surgery - Scope to bilateral knees October 2016 - Immunizations Immunizations up to date: Yes Hx Diphtheria, Pertussis, Tetanus Vaccination: Yes Review of Systems - Review of Systems Constitutional: See HPI, Diaphoresis EENT: No symptoms reported Gastrointestinal: See HPI Genitourinary: See HPI Musculoskeletal: See HPI -: Yes All other systems reviewed and negative Physical Exam - Vital signs Vitals: Temp Pulse Resp BP Pulse Ox 97.4 F 77 18 147/94 H 96 07/05/19 11:02 07/05/19 11:02 07/05/19 11:02 07/05/19 11:02 07/05/19 11:02 Interpretation: Hypertensive - Notes Notes: GENERAL: Alert, interacts well. No acute distress. HEAD: Normocephalic, atraumatic EYES: Pupils equal, round and reactive to light, extraocular movements intact. ENT: Oral mucosa moist, tongue midline. NECK: Full range of motion, supple, trachea midline. LUNGS: Clear to auscultation bilaterally, no wheezes, rales or rhonchi, no respiratory distress. HEART: Regular rate and rhythm, no murmurs, gallops, rubs. ABDOMEN: Soft, nontender, nondistended, bowel sounds present in all 4 quadrants. EXTREMITIES: Moves all 4 extremities spontaneously. No cyanosis. NEUROLOGICAL: Alert and oriented x3, normal speech. PSYCH: Normal mood, normal affect. SKIN: Warm, Dry, normal turgor, no rashes or lesions noted. Course - Re-evaluation Re-evalutation: 07/05/19 12:29 CBC shows slight leukocytosis 11.5, CMP shows elevated glucose at 161 which is nonfasting, urinalysis shows moderate blood positive nitrites and moderate leukocyte esterase, this has been sent for culture. CT scan the abdomen pelvis Abdomen/Pelvis CT 07/05/19 11:09 IMPRESSION: 1. No definite nephrolithiasis. No hydronephrosis. 4 mm calcific density within the region of the distal left ureter which is favored to represent a vascular calcification although stone not entirely excluded. 2. Mild circumferential bladder wall thickening, likely secondary to decompressed state. Recommend correlation with urinalysis for evaluation of cystitis. 3. No other findings to explain patient's symptoms. Patient will be treated with keflex 500 mg BID. - Vital Signs Vital signs: Temp Pulse Resp BP Pulse Ox 97.4 F 77 18 147/94 H 96 07/05/19 11:02 07/05/19 11:02 07/05/19 11:02 07/05/19 11:02 07/05/19 11:02 - Laboratory Result Diagrams: 07/05/19 11:05 07/05/19 11:05 Laboratory results interpreted by me: 07/05/19 07/05/19 07/05/19 11:05 11:05 11:05 WBC 11.5 H Lymph % (Auto) 12.4 L Absolute Neuts (auto) 9.0 H Glucose 161 H Urine Protein 100 H Urine Blood MODERATE H Urine Nitrite POSITIVE H Ur Leukocyte Esterase MODERATE H Urine Ascorbic Acid 20 H Discharge - Discharge Clinical Impression: Acute cystitis with hematuria Condition: Stable Disposition: HOME, SELF-CARE Additional Instructions: Urinary Tract Infection Your evaluation indicates that you have a urinary tract infection. This is due to germs growing in the bladder. This is a common problem. This infection usually responds quickly to antibiotics. Your antibiotic should be taken exactly as prescribed. Drink plenty of fluids -- three to four quarts a day. Occasionally, a bladder anesthetic will be prescribed to help stop the feeling of urgency until the antibiotic has a chance to clear the infection. This may cause your urine to be dark orange. Certain urine infections require a culture. If the doctor obtained a cu lture, the results will be back in two days. You should call to see if a change in treatment is needed. A repeat urinalysis after you finish treatment is often recommended. The physician will let you know if further testing is required. Call the doctor if you develop fever, chills, flank pain, inability to urinate, or blood in the urine. Prescriptions: Cephalexin Monohydrate [Keflex 500 mg Capsule] 500 mg PO BID 7 Days capsule Referrals: KIRSTIE SIMPSON MD [ACTIVE STAFF] - Follow up as needed
[2019-07-05 13:10] VITALS: BP 149/96
== END 2019-07-05 13:18 | disposition home or self-care (01) ==
LOC: ER 10:48
DX: N30.01 Acute cystitis with hematuria (principal); M54.9 Dorsalgia, unspecified; R61 Generalized hyperhidrosis; F17.200 Nicotine dependence, unspecified, uncomplicated; F12.10 Cannabis abuse, uncomplicated; J44.9 Chronic obstructive pulmonary disease, unspecified; Z91.012 Allergy to eggs; Z88.6 Allergy status to analgesic agent; D72.829 Elevated white blood cell count, unspecified
CPT/HCPCS: 99284; 96361; 96374; 36415; 85025; 80053; 81001; 74176; J1885; J7030